=== PATIENT | male | born 2000 | race Caucasian/White ===

== ENCOUNTER 2022-06-26 14:48 | Inpatient (IN) ==
[2022-06-26 15:49] LABS: Hematocrit (blood only) 45.6 % (42.0-52.0); Hemoglobin 16.1 g/dl (14.0-18.0); Mean Corpuscular Hemoglobin 31.6 pg (25.0-34.0); Mean Corpuscular Hgb Conc 35.3 g/dL (32.0-36.0); Mean Corpuscular Volume 89.6 fL (80.0-100.0); Mean Platelet Volume 9.1 fL (9.4-12.4); Platelet Count 280 K/uL (130-400); RDW Coefficient of Variation 11.4 % (11.5-14.5); RDW Standard Deviation 37.2 fL (36.4-46.3); Red Blood Count 5.09 M/uL (4.70-6.10); White Blood Count 9.26 K/ul (4.8-10.8)
--- NOTE | 2022-06-26 15:51 | XRay Report ---
XR chest 1V not portable CLINICAL HISTORY: Chest pain, nonspecific TECHNIQUE: Single frontal radiograph of the chest was obtained. Comparison: None available at the time of this dictation. FINDINGS: No lines and tubes are seen. The cardiomediastinal silhouette is normal. The lungs are clear. No evid ence of pleural effusion or pneumothorax. IMPRESSION: No acute chest disease. ACT 112: Negative or not required by law. Electronically signed by: Harvinder Kaiser M.D. 06/26/2022 3:50 PM
[2022-06-26 16:07] LABS: Albumin Globulin Ratio 1.4 (0.9-2); Albumin Level 4.5 gm/dl (3.4-5.0); BUN Creatinine Ratio 11.8 (10-20); Bilirubin,Total 0.8 mg/dl (0.2-1.0); Calcium 9.3 mg/dl (8.6-10.3); Creatinine Clr Calc Pharmacy 154.8 ml/min; Est GFR (African American) 136.5 ml/min; Est GFR (Non-African American) 117.8 ml/min; Globulin 3.2 gm/dl (2.5-4.0); Potassium 3.8 mmol/L (3.5-5.1); Total Protein 7.7 gm/dl (6.0-8.3)
[2022-06-26 16:17] LABS: Troponin I High Sensitivity 6155.4 pg/ml (0-20)
[2022-06-26] MEDS ORDERED: KETOROLAC 30 MG/ML VIAL IV STA (16:19)
[2022-06-26 16:21] LABS: Partial Thromboplastin Time 26.8 Seconds (21.0-31.0); Prothrombin Time 10.9 Seconds (9.0-12.0)
[2022-06-26] MEDS ORDERED: SODIUM CHLORIDE 0.9% 1000ML 1,000 ML IV SCH (16:30)
--- NOTE | 2022-06-26 16:39 | Electrocardiogram Report ---
Test Reason : Blood Pressure : / mmHG Vent. Rate : 087 BPM Atrial Rate : 087 BPM P-R Int : 126 ms QRS Dur : 100 ms QT Int : 352 ms P-R-T Axes : 075 080 063 degrees QTc Int : 423 ms Poor data quality, interpretation may be adversely affected Normal sinus rhythm with sinus arrhythmia Incomplete right bundle branch block Borderline ECG No previous ECGs available Confirmed by Tomasz Marrufo ([id number]) on 06/26/2022 4:38:39 PM Referred By: Confirmed By:Williams Marrufo
[2022-06-26 16:42] LABS: ANC (manual) 4.54 K/uL (1.4-6.5); Basophils # (manual) 0.09 K/uL (0-0.2); Basophils % (manual) 1 %; Eosinophils # (manual) 0.19 K/uL (0-0.50); Eosinophils % (manual) 2 %; Lymphocytes # (manual) 2.22 K/uL (1.2-3.4); Lymphocytes % (manual) 24 %; Monocytes # (manual) 0.83 K/uL (0.11-0.59); Monocytes % (manual) 9 %; Neutrophils # (manual) 4.54 K/uL (1.40-6.50); Neutrophils % (manual) 49 %; RBC Morphology Unremarkable; Reactive Lymphocytes # (manual) 1.48 K/uL; Reactive Lymphocytes % (manual) 16 %
[2022-06-26] MEDS ORDERED: OPTIRAY 320 500ml IV ONE (16:59)
--- NOTE | 2022-06-26 17:28 | CT Scan Report ---
CT ANGIOGRAPHY OF THE CHEST, PULMONARY EMBOLUS PROTOCOL CLINICAL HISTORY: +Trop, recent travel COMPARISON STUDY: Chest radiograph performed earlier today. TECHNIQUE: Following IV administration of 110 mL of Optiray, helical axial images of the chest were o btained utilizing the pulmonary embolus protocol. Maximal intensity projections and sagittal and cor onal reformats were viewed on an independent 3D workstation. IV contrast was administered without co mplication. Automated exposure control was utilized for the study. A dose lowering technique was ut ilized adhering to the principles of ALARA. CT DOSE: 502.47 mGy.cm FINDINGS: No pulmonary emboli are identified. There is no thoracic aortic dissection. There is no pe ricardial effusion. No thoracic lymphadenopathy is noted. Possible subendocardial hypoenhancement is most evident within the left ventricular apex. This could be artifactual. No pneumothorax or pleural effusion is present. 2.2 cm lingular cyst is noted. There are mild groundglass opacities with mosaic attenuation within the lungs. Bony thorax is unremarkable. Visualized portions of the upper abdomen a re also unremarkable. IMPRESSION: 1. No pulmonary emboli identified. 2. Nonspecific mild groundglass opacities with mosaic attenuation. No consolidation. 3. Possible left ventricular subendocardial hypoenhancement. This could be artifactual however correl ation with serum troponin level is recommended. ACT 112: Negative or not required by law. Electronically signed by: Nathen Paiz M.D. 06/26/2022 5:26 PM
[2022-06-26] MEDS ORDERED: COLCHICINE 0.6 MG TAB PO ONE (17:41)
[2022-06-26 17:44] LABS: C Reactive Protein 2.99 mg/dl (0-0.5); Magnesium 1.9 mg/dl (1.7-2.4); Uric Acid 6.3 mg/dl (2.6-7.2)
[2022-06-26 17:46] LABS: Adenovirus PCR Not Detected (NotDetected); Bordetella parapertussis PCR Not Detected (NotDetected); Bordetella pertussis PCR Not Detected (NotDetected); Chlamydia pneumoniae PCR Not Detected (NotDetected); Coronavirus 229E PCR Not Detected (NotDetected); Coronavirus CoV-2 (COVID19)PCR Not Detected (NotDetected); Coronavirus HKU1 PCR Not Detected (NotDetected); Coronavirus NL63 PCR Not Detected (NotDetected); Coronavirus OC43PCR Not Detected (NotDetected); Human Metapneumovirus PCR Not Detected (NotDetected); Influenza A PCR Not Detected (NotDetected); Influenza B PCR Not Detected (NotDetected); Mycoplasma pneumoniae PCR Not Detected (NotDetected); Parainfluenza Virus 1 PCR Not Detected (NotDetected); Parainfluenza Virus 2 PCR Not Detected (NotDetected); Parainfluenza Virus 3 PCR Not Detected (NotDetected); Parainfluenza Virus 4 PCR Not Detected (NotDetected); Respiratory Syncytial VirusPCR Not Detected (NotDetected); Rhinovirus/Enterovirus PCR Not Detected (NotDetected)
[2022-06-26 17:54] LABS: Appearance Urine Clear (Clear); Bacteria Urine Automated Negative (Negative); Bilirubin Urine Negative (Negative); Blood Urine Trace (Negative); Cast Urine Automated 0 /lpf (0-5); Color Urine Yellow; Epithelial Cell Urine Auto 0-5 /lpf (0-5); Glucose Urine UA Negative (Negative); Ketones Urine Negative (Negative); Leukocyte Esterase Urine Negative (Negative); Nitrite Urine Negative (Negative); Protein Urine Negative (Negative); RBC Urine Automated 0-4 /hpf (0-4); Specific Gravity Urine 1.026 (1.000-1.030); Urobilinogen Urine Negative (Negative); WBC Urine Automated 0 /hpf (0-5)
[2022-06-26 18:06] LABS: Lyme Ab IgG w/WB Rflx Negative (Negative); Lyme Ab IgM w/WB Rflx Negative (Negative)
[2022-06-26 18:15] LABS: Amphetamines+Metham, Urine Neg (Neg); Barbiturates, Urine Neg (Neg); Benzodiazepine, Urine Neg (Neg); Cocaine, Urine Neg (Neg); MDMA (Ecstacy), Urine Neg (Neg); Methadone, Urine Neg (Neg); Opiate, Urine Neg (Neg); Phencyclidine, Urine Neg (Neg)
--- NOTE | 2022-06-26 18:34 | History & Physical Report ---
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 EBV labs sent by ER pending. Urine drug toxicology negative. Trend troponins TTE Consult cardiology tomorrow (2) Acute pericarditis: Plan: Colchicine 0.6mg PO BID Aspirin 650mg PO TID Pantoprazole for GI prophylaxis Plan VTE Prophylaxis - low risk Diet - heart healthy Disposition - admit to PCU Admission and Anticipated Discharge Date Admission Date: June 25, 2022 History of Present Illness Chief Complaint: Chest pain, abnormal outpatient labs Primary Care Provider: NO PCP Rex Goodman is a 21 year old male who presents to the ER with chest pain. Symptoms started yesterday. Center of his chest. Increased pressure today therefore he made an appointment with [facility] who performed blood work including a CPK which was elevated therefore he was sent to the ER for further evaluation. He denies any associated diaphoresis, shortness of breath or nausea. Pain is not positional, worse with inspiration or exertion. No radiation. Severity 1-2/10. Constant pressure. He took an Advil prior to going to [facility] which he reports helped his pain. He denies any recent URI symptoms or vaccination but did have a diarrheal illness last week. In the ER high sensitivity troponin was elevated 6155 pg/ml and the ER provider discussed his case was discussed with the body welder specification consultant who recommended admission and colchicine. Allergies Allergy/AdvReac Type Severity Reaction Status Date / Time animal dander Allergy Intermediate ITCHY Verified 06/26/22 16:47 EYES, SNEEZING, CONGESTION pollen extracts Allergy Intermediate ITCHY Verified 06/26/22 16:47 EYES, SNEEZING, CONGESTION apricot Allergy Mild TINGLING Verified 06/26/22 16:47 OF TONGUE Home Medications Medication Instructions Recorded Confirmed Type Lactobacillus acidophilus 10 10,000 mmu cells PO DAILY 06/26/22 06/26/22 History billion cell capsule (Probiotic) loratadine 10 mg tablet (Claritin) 10 mg PO DAILY PRN Congestion 06/26/22 06/26/22 History multivitamin 1 tab PO DAILY 06/26/22 06/26/22 History Past Med/Surg History Medical History No chronic diseases present Surgical History No significant past surgical history Social History Smoking Status: Never smoker Hx Alcohol Use: Yes Alcohol type: beer Hx Substance Use: No Preferred Language: Bulgarian Communication Ability: Effective 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 Beliefs That Will Affect Care: None Current Living Situation: Alone Feels Safe at Home: Yes Assistive Devices: None Review of Systems Review of Systems: All systems reviewed & are unremarkable except as noted in HPI & below Physical Exam Constitutional: WD/WN, vitals as above Eyes: PERRL, conjunctivae normal, anicteric sclerae ENMT: external ear and nose normal, oropharynx normal Neck: trachea midline, no thyromegaly Respiratory: normal respiratory effort, lungs clear to auscultation Cardiovascular: RRR, no murmur, no edema Gastrointestinal (Abdomen): normal bowel sounds, soft, nontender, no hepatosplenomegaly Musculoskeletal: no cyanosis or clubbing, extremities motor strength 5/5 Skin: no rashes, warm and dry Neurologic: moves all extremities and awake; not confused Psychiatric: A+Ox3, euthymic affect Results & Data Results & Data Vital Signs (Past 12 Hours) Vital Signs Temp Pulse Resp BP Pulse Ox O2 Del Method 06/26/22 18:00 87 18 116/73 06/26/22 17:30 96 H 20 121/86 06/26/22 17:30 121/86 06/26/22 16:36 96 H 16 96 06/26/22 16:19 95 H 18 100 Room Air 06/26/22 16:37 102 H 06/26/22 15:05 36.7 C 95 H 20 109/71 95 Room Air Laboratory Results Abnormal lab results 06/26/22 06/26/22 06/26/22 Range/Units 15:21 15:21 17:07 RDW Coeff of Ceci 11.4 L (11.5-14.5) % MPV 9.1 L (9.4-12.4) fL Total Abs Lymphocytes 3.70 H (1.2-3.4) K/uL Monocytes # (Manual) 0.83 H (0.11-0.59) K/uL AST 45 H (13-39) U/L Total Creatine Kinase 421 H (30-223) U/L Troponin I High Sens 6155.4 H* (0-20) pg/ml C-Reactive Protein 2.99 H (0-0.5) mg/dl Urine Blood (Negative) 06/26/22 06/26/22 Range/Units 18:50 Unknown RDW Coeff of Ceci (11.5-14.5) % MPV (9.4-12.4) fL Total Abs Lymphocytes (1.2-3.4) K/uL Monocytes # (Manual) (0.11-0.59) K/uL AST (13-39) U/L Total Creatine Kinase (30-223) U/L Troponin I High Sens 7888.0 H* D (0-20) pg/ml C-Reactive Protein (0-0.5) mg/dl Urine Blood Trace H (Negative) Diagnostic Findings XR chest 1V not portable CLINICAL HISTORY: Chest pain, nonspecific TECHNIQUE: Single frontal radiograph of the chest was obtained. Comparison: None available at the time of this dictation. FINDINGS: No lines and tubes are seen. The cardiomediastinal silhouette is normal. The lungs are clear. No evidence of pleural effusion or pneumothorax. IMPRESSION: No acute chest disease. CT ANGIOGRAPHY OF THE CHEST, PULMONARY EMBOLUS PROTOCOL CLINICAL HISTORY: +Trop, recent travel COMPARISON STUDY: Chest radiograph performed earlier today. TECHNIQUE: Following IV administration of 110 mL of Optiray, helical axial images of the chest were obtained utilizing the pulmonary embolus protocol. Maximal intensity projections and sagittal and coronal reformats were viewed on an independent 3D workstation. IV contrast was administered without complication. Automated exposure control was utilized for the study. A dose lowering technique was utilized adhering to the principles of ALARA. CT DOSE: 502.47 mGy.cm FINDINGS: No pulmonary emboli are identified. There is no thoracic aortic dissection. There is no pericardial effusion. No thoracic lymphadenopathy is noted. Possible subendocardial hypoenhancement is most evident within the left ventricular apex. This could be artifactual. No pneumothorax or pleural effusion is present. 2.2 cm lingular cyst is noted. There are mild groundglass opacities with mosaic attenuation within the lungs. Bony thorax is unremarkable. Visualized portions of the upper abdomen are also unremarkable. IMPRESSION: 1. No pulmonary emboli identified. 2. Nonspecific mild groundglass opacities with mosaic attenuation. No conso lidation. 3. Possible left ventricular subendocardial hypoenhancement. This could be artifactual however correlation with serum troponin level is recommended. Medications Administered ER Medications Given: NSS 1L bolus Toradol 30mg IV Colchicine 0.6mg PO ECG Rate (beats per minute): 87 Rhythm: sinus with SA Findings: + RBBB (incomplete) Comparison ECG Date: no prior available Code Status & VTE Plan Code Status Full VTE Prophylaxis Plan VTE Prophylaxis will be ordered: No PG Care Time/CCT Total # of Minutes Spent Total Time Spent with Patient: Total time spent is greater than 50% in coordination of care (as documented) at patient's floor/unit and/or counseling patient: Coding Level of Care Code 84656 INT INP/OBS CARE 2/55MIN Diagnoses Myocarditis I51.4 Acute pericarditis I30.9
[2022-06-26] MEDS ORDERED: ACETAMINOPHEN 325 MG TAB PO PRN (19:14)
[2022-06-26] MEDS: COLCHICINE 0.6 MG TAB PO SCH (20:17)
[2022-06-26] MEDS: ASPIRIN 325 MG ECTAB PO SCH (20:17)
[2022-06-26] MEDS ORDERED: MELATONIN 3 MG TAB PO PRN (22:49)
--- NOTE | 2022-06-26 23:22 | Emergency Department Note ---
History of Present Illness General Chief complaint: Cardiac Assessment Stated complaint: REF BY S,CHEST PAIN,ABNORMAL LAB RESULT Time Seen by Provider: 06/26/22 16:16 History of Present Illness Maximum Pain Intensity: 2 This is a 21-year-old male presenting to the emergency department for evaluation of left-sided chest pain and abnormal outpatient labs. The patient states that he has had left-sided chest pain for about the past 24 hours and went to [facility] this morning. Evidently he had a normal EKG and normal chest x-ray. They contacted him as he had blood work performed and had an elevated CPK level. He was referred to the ER for evaluation. The patient is usually healthy and typically does not take medication on a regular basis. He did travel to the [facility] for spring, as this is where her family lives. The patient may have had some diarrheal illness last week but no significant URI symptoms. He does not have any positional component to his discomfort. No injury or trauma. No fevers or chills. No significant past family history. He did take ibuprofen earlier today, which did seem to significantly help his symptoms, and he currently rates his pain a 2/10, dull, nonradiating. Home Medications Medication Instructions Recorded Confirmed Type Lactobacillus acidophilus 10 10,000 mmu cells PO DAILY 06/26/22 06/26/22 History billion cell capsule (Probiotic) loratadine 10 mg tablet (Claritin) 10 mg PO DAILY PRN Congestion 06/26/22 06/26/22 History multivitamin 1 tab PO DAILY 06/26/22 06/26/22 History Allergies Allergy/AdvReac Type Severity Reaction Status Date / Time animal dander Allergy Intermediate ITCHY Verified 06/26/22 16:47 EYES, SNEEZING, CONGESTION pollen extracts Allergy Intermediate ITCHY Verified 06/26/22 16:47 EYES, SNEEZING, CONGESTION apricot Allergy Mild TINGLING Verified 06/26/22 16:47 OF TONGUE Past Med/Surg History Medical History No chronic diseases present Surgical History No significant past surgical history Social History Smoking Status: Never smoker Hx Alcohol Use: Yes Alcohol type: beer Hx Substance Use: No Preferred Language: Slovak Communication Ability: Effective Records Analysis Manager Required: No Beliefs That Will Affect Care: None Current Living Situation: Alone Feels Safe at Home: Yes Assistive Devices: None Review of Systems A total of 10 systems reviewed and were otherwise negative Physical Exam Vital Signs Vital Signs - 24 hr 06/26/22 15:05 06/26/22 16:37 06/26/22 16:19 Temperature 36.7 C Temperature Source Temporal Artery Scan Pulse Rate 95 H 102 H 95 H Pulse Rate from SpO2 Sensor Respiratory Rate 20 18 Respiratory Effort / Characteristics Non-Labored Spontaneous Respiratory Depth Normal Respiratory Pattern Regular Blood Pressure 109/71 Blood Pressure Mean 83 Pulse Oximetry 95 100 Oxygen Delivery Method Room Air Room Air Sepsis Recent Fever Within 48 Hours No Sepsis New/Unexplained Change in Mental Status No Sepsis Action Taken by Nursing No Action Required 06/26/22 16:36 06/26/22 17:30 06/26/22 17:30 Temperature Temperature Source Pulse Rate 96 H 96 H Pulse Rate from SpO2 Sensor 97 H Respiratory Rate 16 20 Respiratory Effort / Characteristics Respiratory Depth Respiratory Pattern Blood Pressure 121/86 121/86 Blood Pressure Mean 97 97 Pulse Oximetry 96 Oxygen Delivery Method Sepsis Recent Fever Within 48 Hours Sepsis New/Unexplained Change in Mental Status Sepsis Action Taken by Nursing 06/26/22 18:00 Temperature Temperature Source Pulse Rate 87 Pulse Rate from SpO2 Sensor Respiratory Rate 18 Respiratory Effort / Characteristics Respiratory Depth Respiratory Pattern Blood Pressure 116/73 Blood Pressure Mean 87 Pulse Oximetry Oxygen Delivery Method Sepsis Recent Fever Within 48 Hours Sepsis New/Unexplained Change in Mental Status Sepsis Action Taken by Nursing VITALS: Vitals are noted on the nurse's note and reviewed by myself. Vital signs stable. GENERAL: Well-developed, well-nourished, white male, who is in no acute distress and resting comfortably. Patient is cooperative with the examination. HEAD: Normocephalic atraumatic. MOUTH: Mucous membranes moist. Tonsils are not enlarged. Pharynx without erythema, blood, or exudate. Uvula midline. Airway patent. NECK: Supple without nuchal rigidity. No lymphadenopathy. No thyromegaly. Cervical spine is nontender. HEART: Regular rate and rhythm without murmurs gallops or rubs. LUNGS: Clear to auscultation bilaterally without wheezes, rales or rhonchi. No retractions or accessory muscle use. ABDOMEN: Positive normal bowel sounds x 4. Soft, nontender, without masses or organomegaly. No guarding or rebound tenderness. MUSCULOSKELETAL: No muscle atrophy, erythema, or edema noted. Full range of motion in all extremities. NEURO: Patient was alert and oriented to person place and time. CN II through XII grossly intact. Course Administered Medications Acetaminophen (Acetaminophen 325 Mg Tab) 650 mg PO Q4H PRN PRN Reason: Pain or Fever Stop: 07/26/22 19:13 Last Admin: 06/26/22 23:03 Dose: 650 mg Documented By: CORINA Aspirin (Aspirin 325 Mg Ectab) 650 mg PO TID AIDAN Stop: 07/26/22 20:59 Last Admin: 06/26/22 20:17 Dose: 650 mg Documented By: CORINA Colchicine (Colchicine 0.6 Mg Tab) 0.6 mg PO BID AIDAN Stop: 07/26/22 20:59 Last Admin: 06/26/22 20:17 Dose: 0.6 mg Documented By: CORINA Discontinued Medications Colchicine (Colchicine 0.6 Mg Tab) 0.6 mg PO NOW ONE Stop: 06/26/22 17:42 Last Admin: 06/26/22 17:52 Dose: 0.6 mg Documented By: SARAH Sodium Chloride (Nss 1000ml) 1,000 mls @ 999 mls/hr IV .Q1H1M AIDAN Stop: 06/26/22 17:30 Last Infusion: 06/26/22 17:57 Dose: 0 mls/hr Documented By: Admin: 06/26/22 16:32 Dose: 999 mls/hr Documented By: SARAH Ioversol (Optiray 320 500ml) 110 ml IV ONCE ONE Stop: 06/26/22 17:00 Last Admin: 06/26/22 16:59 Dose: 110 ml Documented By: GUERDA Ketorolac Tromethamine (Ketorolac 30 Mg/Ml Vial) 30 mg IV NOW STA Stop: 06/26/22 16:20 Last Admin: 06/26/22 16:32 Dose: 30 mg Documented By: SARAH Medical Decision Making Differential Diagnosis Differential diagnosis includes, but is not limited to: Myocardial infarction, dysrhythmia, pericarditis, pneumothorax, aortic aneurysm/dissection, DVT/PE, anxiety, GERD, PUD, electrolyte imbalance, thyroid disorder, pneumonia, bronchitis, pancreatitis, and others Laboratory Data 06/26/22 15:21 06/26/22 15:21 Lab Results 06/26/22 06/26/22 06/26/22 Range/Units 15:21 15:21 15:21 WBC 9.26 (4.8-10.8) K/ul RBC 5.09 (4.70-6.10) M/uL Hgb 16.1 (14.0-18.0) g/dl Hct 45.6 (42.0-52.0) % MCV 89.6 (80.0-100.0) fL MCH 31.6 (25.0-34.0) pg MCHC 35.3 (32.0-36.0) g/dL RDW Std Deviation 37.2 (36.4-46.3) fL RDW Coeff of Ceci 11.4 L (11.5-14.5) % Plt Count 280 (130-400) K/uL MPV 9.1 L (9.4-12.4) fL Neutrophils % (Manual) 49 % Lymphocytes % (Manual) 24 % Reactive Lymphs % (Man) 16 % Monocytes % (Manual) 9 % Eosinophils % (Manual) 2 % Basophils % (Manual) 1 % Neutrophils # (Manual) 4.54 (1.40-6.50) K/uL Total Absolute Neuts 4.54 (1.4-6.5) K/uL Lymphocytes # (Manual) 2.22 (1.2-3.4) K/uL Reactive Lymphs # 1.48 K/uL Total Abs Lymphocytes 3.70 H (1.2-3.4) K/uL Monocytes # (Manual) 0.83 H (0.11-0.59) K/uL Eosinophils # (Manual) 0.19 (0-0.50) K/uL Basophils # (Manual) 0.09 (0-0.2) K/uL RBC Morphology Unremarkable ESR (0-15) mm/hr PT 10.9 (9.0-12.0) Seconds INR 1.0 (0.9-1.1) APTT 26.8 (21.0-31.0) Seconds PTT Ratio 1.0 Sodium 139 (136-145) mmol/L Potassium 3.8 (3.5-5.1) mmol/L Chloride 104 (98-107) mmol/L Carbon Dioxide 29 (21-32) mmol/L Anion Gap 6 (3-11) BUN 11 (6-23) mg/dl Creatinine 0.93 (0.6-1.4) mg/dl Est Cr Clr Drug Dosing 154.8 ml/min Est GFR ( Amer) 136.5 ml/min Est GFR (Non-Af Amer) 117.8 ml/min BUN/Creatinine Ratio 11.8 (10-20) Glucose 93 (70-99(Fasting)) mg/dl Uric Acid (2.6-7.2) mg/dl Calcium 9.3 (8.6-10.3) mg/dl Magnesium (1.7-2.4) mg/dl Total Bilirubin 0.8 (0.2-1.0) mg/dl AST 45 H (13-39) U/L ALT 27 (7-52) U/L Alkaline Phosphatase 75 (34-104) U/L Total Creatine Kinase (30-223) U/L Troponin I High Sens 6155.4 H* (0-20) pg/ml C-Reactive Protein (0-0.5) mg/dl Total Protein 7.7 (6.0-8.3) gm/dl Albumin 4.5 (3.4-5.0) gm/dl Globulin 3.2 (2.5-4.0) gm/dl Albumin/Globulin Ratio 1.4 (0.9-2) Lipase (11-82) U/L TSH (0.300-4.500) uIu/ml Adenovirus (PCR) (NotDetected) B. pertussis DNA (PCR) (NotDetected) B.parapertussis DNA PCR (NotDetected) Lyme Disease IgG Ab (Negative) Lyme Disease IgM Ab (Negative) C. pneumoniae DNA (PCR) (NotDetected) Coronavirus OC43 (PCR) (NotDetected) Coronavirus HKU1 (PCR) (NotDetected) Coronavirus 229E (PCR) (NotDetected) SARS-CoV-2 (PCR) (NotDetected) Coronavirus NL63 (PCR) (NotDetected) Human Metapneumovir PCR (NotDetected) Influenza Type A (PCR) (NotDetected) Influenza Type B (PCR) (NotDetected) M. pneumoniae (PCR) (NotDetected) Parainfluenza 1 (PCR) (NotDetected) Parainfluenza 2 (PCR) (NotDetected) Parainfluenza 3 (PCR) (NotDetected) Parainfluenza 4 (PCR) (NotDetected) RSV (PCR) (NotDetected) Entero/Rhino (PCR) (NotDetected) 06/26/22 06/26/22 06/26/22 Range/Units 15:21 16:45 17:07 WBC (4.8-10.8) K/ul RBC (4.70-6.10) M/uL Hgb (14.0-18.0) g/dl Hct (42.0-52.0) % MCV (80.0-100.0) fL MCH (25.0-34.0) pg MCHC (32.0-36.0) g/dL RDW Std Deviation (36.4-46.3) fL RDW Coeff of Ceci (11.5-14.5) % Plt Count (130-400) K/uL MPV (9.4-12.4) fL Neutrophils % (Manual) % Lymphocytes % (Manual) % Reactive Lymphs % (Man) % Monocytes % (Manual) % Eosinophils % (Manual) % Basophils % (Manual) % Neutrophils # (Manual) (1.40-6.50) K/uL Total Absolute Neuts (1.4-6.5) K/uL Lymphocytes # (Manual) (1.2-3.4) K/uL Reactive Lymphs # K/uL Total Abs Lymphocytes (1.2-3.4) K/uL Monocytes # (Manual) (0.11-0.59) K/uL Eosinophils # (Manual) (0-0.50) K/uL Basophils # (Manual) (0-0.2) K/uL RBC Morphology ESR 15 (0-15) mm/hr PT (9.0-12.0) Seconds INR (0.9-1.1) APTT (21.0-31.0) Seconds PTT Ratio Sodium (136-145) mmol/L Potassium (3.5-5.1) mmol/L Chloride (98-107) mmol/L Carbon Dioxide (21-32) mmol/L Anion Gap (3-11) BUN (6-23) mg/dl Creatinine (0.6-1.4) mg/dl Est Cr Clr Drug Dosing ml/min Est GFR ( Amer) ml/min Est GFR (Non-Af Amer) ml/min BUN/Creatinine Ratio (10-20) Glucose (70-99(Fasting)) mg/dl Uric Acid 6.3 (2.6-7.2) mg/dl Calcium (8.6-10.3) mg/dl Magnesium 1.9 (1.7-2.4) mg/dl Total Bilirubin (0.2-1.0) mg/dl AST (13-39) U/L ALT (7-52) U/L Alkaline Phosphatase (34-104) U/L Total Creatine Kinase 421 H (30-223) U/L Troponin I High Sens (0-20) pg/ml C-Reactive Protein 2.99 H (0-0.5) mg/dl Total Protein (6.0-8.3) gm/dl Albumin (3.4-5.0) gm/dl Globulin (2.5-4.0) gm/dl Albumin/Globulin Ratio (0.9-2) Lipase 11 (11-82) U/L TSH (0.300-4.500) uIu/ml Adenovirus (PCR) Not Detected (NotDetected) B. pertussis DNA (PCR) Not Detected (NotDetected) B.parapertussis DNA PCR Not Detected (NotDetected) Lyme Disease IgG Ab (Negative) Lyme Disease IgM Ab (Negative) C. pneumoniae DNA (PCR) Not Detected (NotDetected) Coronavirus OC43 (PCR) Not Detected (NotDetected) Coronavirus HKU1 (PCR) Not Detected (NotDetected) Coronavirus 229E (PCR) Not Detected (NotDetected) SARS-CoV-2 (PCR) Not Detected (NotDetected) Coronavirus NL63 (PCR) Not Detected (NotDetected) Human Metapneumovir PCR Not Detected (NotDetected) Influenza Type A (PCR) Not Detected (NotDetected) Influenza Type B (PCR) Not Detected (NotDetected) M. pneumoniae (PCR) Not Detected (NotDetected) Parainfluenza 1 (PCR) Not Detected (NotDetected) Parainfluenza 2 (PCR) Not Detected (NotDetected) Parainfluenza 3 (PCR) Not Detected (NotDetected) Parainfluenza 4 (PCR) Not Detected (NotDetected) RSV (PCR) Not Detected (NotDetected) Entero/Rhino (PCR) Not Detected (NotDetected) 06/26/22 06/26/22 Range/Units 17:07 17:07 WBC (4.8-10.8) K/ul RBC (4.70-6.10) M/uL Hgb (14.0-18.0) g/dl Hct (42.0-52.0) % MCV (80.0-100.0) fL MCH (25.0-34.0) pg MCHC (32.0-36.0) g/dL RDW Std Deviation (36.4-46.3) fL RDW Coeff of Ceci (11.5-14.5) % Plt Count (130-400) K/uL MPV (9.4-12.4) fL Neutrophils % (Manual) % Lymphocytes % (Manual) % Reactive Lymphs % (Man) % Monocytes % (Manual) % Eosinophils % (Manual) % Basophils % (Manual) % Neutrophils # (Manual) (1.40-6.50) K/uL Total Absolute Neuts (1.4-6.5) K/uL Lymphocytes # (Manual) (1.2-3.4) K/uL Reactive Lymphs # K/uL Total Abs Lymphocytes (1.2-3.4) K/uL Monocytes # (Manual) (0.11-0.59) K/uL Eosinophils # (Manual) (0-0.50) K/uL Basophils # (Manual) (0-0.2) K/uL RBC Morphology ESR (0-15) mm/hr PT (9.0-12.0) Seconds INR (0.9-1.1) APTT (21.0-31.0) Seconds PTT Ratio Sodium (136-145) mmol/L Potassium (3.5-5.1) mmol/L Chloride (98-107) mmol/L Carbon Dioxide (21-32) mmol/L Anion Gap (3-11) BUN (6-23) mg/dl Creatinine (0.6-1.4) mg/dl Est Cr Clr Drug Dosing ml/min Est GFR ( Amer) ml/min Est GFR (Non-Af Amer) ml/min BUN/Creatinine Ratio (10-20) Glucose (70-99(Fasting)) mg/dl Uric Acid (2.6-7.2) mg/dl Calcium (8.6-10.3) mg/dl Magnesium (1.7-2.4) mg/dl Total Bilirubin (0.2-1.0) mg/dl AST (13-39) U/L ALT (7-52) U/L Alkaline Phosphatase (34-104) U/L Total Creatine Kinase (30-223) U/L Troponin I High Sens (0-20) pg/ml C-Reactive Protein (0-0.5) mg/dl Total Protein (6.0-8.3) gm/dl Albumin (3.4-5.0) gm/dl Globulin (2.5-4.0) gm/dl Albumin/Globulin Ratio (0.9-2) Lipase (11-82) U/L TSH 1.720 (0.300-4.500) uIu/ml Adenovirus (PCR) (NotDetected) B. pertussis DNA (PCR) (NotDetected) B.parapertussis DNA PCR (NotDetected) Lyme Disease IgG Ab Negative (Negative) Lyme Disease IgM Ab Negative (Negative) C. pneumoniae DNA (PCR) (NotDetected) Coronavirus OC43 (PCR) (NotDetected) Coronavirus HKU1 (PCR) (NotDetected) Coronavirus 229E (PCR) (NotDetected) SARS-CoV-2 (PCR) (NotDetected) Coronavirus NL63 (PCR) (NotDetected) Human Metapneumovir PCR (NotDetected) Influenza Type A (PCR) (NotDetected) Influenza Type B (PCR) (NotDetected) M. pneumoniae (PCR) (NotDetected) Parainfluenza 1 (PCR) (NotDetected) Parainfluenza 2 (PCR) (NotDetected) Parainfluenza 3 (PCR) (NotDetected) Parainfluenza 4 (PCR) (NotDetected) RSV (PCR) (NotDetected) Entero/Rhino (PCR) (NotDetected) Imaging Data Radiologist's Impression: Chest X-Ray 06/26/22 15:08 XR chest 1V not portable CLINICAL HISTORY: Chest pain, nonspecific TECHNIQUE: Single frontal radiograph of the chest was obtained. Comparison: None available at the time of this dictation. FINDINGS: No lines and tubes are seen. The cardiomediastinal silhouette is normal. The lungs are clear. No evidence of pleural effusion or pneumothorax. IMPRESSION: No acute chest disease. ACT 112: Negative or not required by law. Electronically signed by: Harvinder Kaiser M.D. 06/26/2022 3:50 PM Chest CTA 06/26/22 16:39 CT ANGIOGRAPHY OF THE CHEST, PULMONARY EMBOLUS PROTOCOL CLINICAL HISTORY: +Trop, recent travel COMPARISON STUDY: Chest radiograph performed earlier today. TECHNIQUE: Following IV administration of 110 mL of Optiray, helical axial images of the chest were obtained utilizing the pulmonary embolus protocol. Maximal intensity projections and sagittal and coronal reformats were viewed on an independent 3D workstation. IV contrast was administered without comp lication. Automated exposure control was utilized for the study. A dose lowering technique was utilized adhering to the principles of ALARA. CT DOSE: 502.47 mGy.cm FINDINGS: No pulmonary emboli are identified. There is no thoracic aortic dissection. There is no pericardial effusion. No thoracic lymphadenopathy is no charisse. Possible subendocardial hypoenhancement is most evident within the left ventricular apex. This could be artifactual. No pneumothorax or pleural effusion is present. 2.2 cm lingular cyst is noted. There are mild groundglass opacities with mosaic attenuation within the lungs. Bony thorax is unremarkable. Visualized portions of the upper abdomen are also unremarkable. IMPRESSION: 1. No pulmonary emboli identified. 2. Nonspecific mild groundglass opacities with mosaic attenuation. No consolidation. 3. Possible left ventricular subendocardial hypoenhancement. This could be artifactual however correlation with serum troponin level is recommended. ACT 112: Negative or not required by law. Electronically signed by: Nathen Paiz M.D. 06/26/2022 5:26 PM ECG Data Attestation: I personally reviewed and interpreted this ECG as follows: Indication: + chest pain Additional Comments: Normal sinus rhythm with sinus arrhythmia @87bpm No acute ST elevation Incomplete right bundle branch block No previous ECGs available MDM Narrative Physical exam and history were performed. Nursing notes, EMR, and Medication List were personally reviewed. No social concerns were identified as barriers to patients care. Patient appears to have chest pain symptoms bringing him to the ER. He evidently has abnormal outpatient labs after being seen at [facility] today. Patient arrives during a period of high ER volume and acuity. Nursing protocol orders have been performed and are available for my review at the time of patient evaluation. On my arrival to the room the patient appears well and nontoxic. Physical exam is fairly unremarkable. EKG is without acute ST elevation. His blood work was reviewed and is concerning as he has a significantly elevated troponin of over 6000. He does not seem to have positional discomfort, and EKG is without distinct pericarditis. He does have recent travel history. Additional labs were added and the patient was sent to CT scan for imaging of his chest or possible pulmonary emboli. The remaining of the patient's blood work is as above. He does not have a significantly elevated white blood cell count or gross anemia. INR is 1.0. Glucose is 93. Uric acid is negative. Magnesium is normal. Transaminases are not diagnostic. His CK is slightly elevated at 421. CRP is elevated. TSH and lipase are nondiagnostic. Urine is without evidence of infection. Chart review screen is negative. Bio fire is negative. EBV panel is pending. Patient was given Toradol and IV fluids. Imaging studies of the chest were informally reviewed by myself and read by radiology as above. He does not have obvious pulmonary emboli or significant pericardial effusion on imaging. I did reach out to the on-call electrodynamicist, Dr. Estevez, and we will start the patient on colchicine here in the ER. The patient will need echo and admission for further management. Patient was updated on these recommendations and understands. Case was discussed with the hospitalist team who agreed to evaluate the patient here in the department. Please see their dictation for further patient course, plan, disposition. The chart was completed utilizing finalsite Voice Recognition Software. Grammatical errors, random word insertions, pronoun errors, and incomplete sentences are an occasional consequence of this system due to software limitations, ambient noise, and hardware issues. Any formal questions or concerns about the content, text, or information contained within the body of t his dictation should be directly addressed to the provider for clarification. . Impression & Plan Myocarditis, Chest pain, Elevated troponin Discharge Plan Visit Data Chief Complaint: Cardiac Assessment Stated Complaint: REF BY [facility],CHEST PAIN,ABNORMAL LAB RESULT ED Provider: Aaron Hernandez ED Midlevel Provider: Epi Rosario Discharge Problem: Myocarditis, Chest pain, Elevated troponin Patient Disposition: Admitted As Inpatient Discharge Instructions Interventions: ED Discharge Assessment Last Done: 06/26/22 18:51
[2022-06-27] MEDS: COLCHICINE 0.6 MG TAB PO SCH (08:43)
[2022-06-27] MEDS: ASPIRIN 325 MG ECTAB PO SCH (08:43)
[2022-06-27] MEDS ORDERED: PANTOprazole 40 MG TAB PO SCH (09:00)
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
--- NOTE | 2022-06-27 11:36 | XCELERA ---
[id number] \\[email or web address]\[id number]
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
--- NOTE | 2022-06-27 13:56 | Discharge Summary ---
Date of Service June 27, 2022 Admission HPI Per Admitting Provider Rex Goodman is a 21 year old male who presents to the ER with chest pain. Symptoms started yesterday. Center of his chest. Increased pressure today therefore he made an appointment with [facility] who performed blood work including a CPK which was elevated therefore he was sent to the ER for further evaluation. He denies any associated diaphoresis, shortness of breath or nausea. Pain is not positional, worse with inspiration or exertion. No radiation. Severity 1-2/10. Constant pressure. He took an Advil prior to going to [facility] which he reports helped his pain. He denies any recent URI symptoms or vaccination but did have a diarrheal illness last week. 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 Principal Diagnosis acute viral emily-myocarditis Discharge Exam Constitutional WD/WN, vitals as above Eyes PERRL, conjunctivae normal, anicteric sclerae ENMT external ear and nose normal, oropharynx normal Neck trachea midline, no thyromegaly Respiratory normal respiratory effort, lungs clear to auscultation Cardiovascular RRR, no murmur, no edema Gastrointestinal (Abdomen) normal bowel sounds, soft, nontender, no hepatosplenomegaly Musculoskeletal no cyanosis or clubbing, extremities motor strength 5/5 Skin no rashes, warm and dry Neurologic moves all extremities and awake; not confused Psychiatric A+Ox3, euthymic affect Discharge Data Allergies Allergy/AdvReac Type Severity Reaction Status Date / Time animal dander Allergy Intermediate ITCHY Verified 06/26/22 16:47 EYES, SNEEZING, CONGESTION pollen extracts Allergy Intermediate ITCHY Verified 06/26/22 16:47 EYES, SNEEZING, CONGESTION apricot Allergy Mild TINGLING Verified 06/26/22 16:47 OF TONGUE Consultations 06/26/22 18:18 ED Decision to Admit Stat 06/26/22 19:14 Consult Cardiology Routine Ordered Studies 06/26/22 16:39 CT angio chest PE protocol Stat Hospital Course (1) Myocarditis: Acute Viral Emily-Myocarditis Biofire negative, Lyme negative. EBV labs sent by ER pending. Urine drug toxicology negative. Appreciate input from cardiology: Diagnosis based on his elevated biomarkers, symptoms, mild EKG changes and normal left ventricular function without regional wall motion abnormality. He had a viral illness last week with diarrhea. Lyme titers were normal. He has had some recent travel. His symptoms improved markedly with nonsteroidal medications and colchicine. He seems to be feeling better today. I would continue b.i.d. dosing of colchicine based on his weight. He can continue aspirin or ibuprofen at his discretion. Therapy should continue for 3 months. He should be reassessed in our clinic in 2 weeks with repeat biomarkers and limited echocardiography. He will need to avoid exercising for the next 3 months. He can return to class on Friday. (2) Acute pericarditis: Colchicine 0.6mg PO BID Aspirin 650mg PO TID while inpatient. Pantoprazole for GI prophylaxis Plan VTE Prophylaxis - low risk Total Time Total Time Spent Total Time Spent (In Minutes): 32 Discharge Plan Discharge Items Patient Disposition: Home - Self-Care Reason For Visit: PERIMYOCARDITIS Discharge Diagnosis: Acute viral emily-myocarditis Activity: Resume your previous activity Non-emergency contact: Primary Care Provider Call non-emergency contact if: you have any medication questions Follow-up/Referrals: PCP,NO [Primary Care Provider] - Diet: Regular Addtl Attending Provider Instructions: This is likely due to your viral illness last week with diarrhea, which lead to the inflammatory changes to the heart muscle. Your symptoms improved markedly with nonsteroidal medications and colchicine. Please continue twice a day dosing of colchicine; therapy for 3 months. You can continue aspirin or ibuprofen at your discretion. Please return to [facility] in 2 weeks to recheck your blood work and repeat limited echocardiography. You will need to avoid exercising for the next 3 months. You can return to class on Friday. Pending Studies at Discharge: No Stand-Alone Forms[facility] Sm[facility] Cessation Medications and DC Order Prescriptions: New colchicine [Colcrys] 0.6 mg Tablet 0.6 mg PO BID 30 Days Qty: 60 2RF Continued multivitamin Tablet 1 tab PO DAILY loratadine [Claritin] 10 mg Tablet 10 mg PO DAILY PRN (Reason: Congestion) Probiotic 10 billion cell Capsule 10,000 mmu cells PO DAILY Admission Data Admit Date/Time: 06/26/22 18:20 Attending Provider: Shane Smith Admit Provider: Kvng Bennett Primary Care Provider: PCP,NO Other Providers: Eyad Estevez ; Kvng Bennett Coding Level of Care Code 24512 INP/OBS DISCH >30 MIN Diagnoses Myocarditis I51.4 Acute pericarditis I30.9
--- NOTE | 2022-06-27 14:12 | Electrocardiogram Report ---
Test Reason : Blood Pressure : / mmHG Vent. Rate : 095 BPM Atrial Rate : 095 BPM P-R Int : 146 ms QRS Dur : 096 ms QT Int : 364 ms P-R-T Axes : 076 076 047 degrees QTc Int : 457 ms Sinus rhythm with occasional ventricular-paced complexes ST elevation, consider early repolarization, pericarditis, or injury Abnormal ECG When compared with ECG of 26-JUN-2022 15:18, Electronic ventricular pacemaker has replaced Sinus rhythm Confirmed by Tomasz Marrufo ([id number]) on 06/27/2022 2:11:47 PM Referred By: [facility] Confirmed By:Williams Marrufo
[2022-06-28 14:58] LABS: EBV Nuclear Ag Antibody <18.00 U/mL; EBV Virus Capsid Ag IgG Ab <18.00 U/mL; Epstein Barr Virus Early Ag Ab <9.00 U/mL
== END 2022-06-27 16:19 | disposition home or self-care (01) | DRG 314 ==
LOC: ED 14:48 → SUATTDRO 18:20 → 2E 18:20